=== PATIENT | male | born 1970 | race Native Hawaiian/Other Pacific Islander ===

== ENCOUNTER 2022-11-26 19:22 | Emergency (ER) | payer OTHER ==
[~2022-11-26] VITALS: Ht 185.4 cm; Wt 63.5 kg
[2022-11-26 19:30] VITALS: TEMP 97.6
[2022-11-26 20:13] LABS: PLATELET COUNT 178 K/uL (142-355); POTASSIUM 4.3 mmol/L (3.6-5.2)
[2022-11-26 21:30] VITALS: BP 124/81
[2022-11-27] MEDS ORDERED: LEVO0.0723 PO (07:54)
[2022-11-27] MEDS ORDERED: CYAN10009 IM (07:55)
[2022-11-27] MEDS ORDERED: LORA0.5T17 PO (07:56)
[2022-11-27] MEDS ORDERED: TRILEPTAL300 MG/51 PO (07:57)
[2022-11-27] MEDS ORDERED: AMANTADINE50 MG/5 ML PO (07:58)
[2022-11-27] MEDS ORDERED: LORA1TAB17 PO (07:59)
[2022-11-27] MEDS ORDERED: VALPROIC A250 MG/5 M PO (08:00)
[2022-11-27] MEDS ORDERED: TYLENOL325 MG PO (08:01)
[2022-11-27] MEDS ORDERED: VALP250S3 PO (08:03)
[2022-11-27] MEDS ORDERED: OMEP20CA PO (08:04)
[2022-11-27] MEDS ORDERED: LEVE5MLUD PO (08:06)
== END 2022-11-26 21:30 | disposition still patient (30) ==
LOC: ED 19:22
PROVIDERS: Emergency Medicine
DX: F20.9 Schizophrenia, unspecified (principal); R45.1 Restlessness and agitation; S06.9XAA Unspecified intracranial injury with loss of consciousness status unknown, initial encounter; R47.01 Aphasia; Z02.79 Encounter for issue of other medical certificate
CPT/HCPCS: 36415; 80053; 85027; 87635; 93005; 99283; U0003